=== PATIENT | male | born 1975 | race African-American/Black ===

== ENCOUNTER 2019-10-22 09:26 | Emergency (ER) | payer SELFPAY ==
--- NOTE | 2019-10-22 10:05 | RAD ---
XR Knee Rt 4 View STANDARD History: Knee injury Comparison: None. Findings: Large joint effusion. Nondisplaced posterior lateral tibial rim fracture seen on the obliqu e image. Fibular head and neck appears be intact. Fibular styloid process appears be intact. Impression: Large effusion with subtle fracture posterior lateral tibial rim is concerning for high-g rade internal derangement. MRI recommended.
[2019-10-22] MEDS ORDERED: Morphine 4 MG/ML VIAL ONE (10:43)
[2019-10-22 10:52] LABS: #Lymphocytes 1.6 thou/uL (1.20-3.40); #Monocytes 0.7 thou/uL (0.11-0.59); #Neutrophils 9.9 thou/uL (1.40-6.50); %Basophils 0.3 % (0.0-1.0); %Eosinophils 0.2 % (0.0-10.0); %Lymphocytes 12.7 % (21.0-51.0); %Monocytes 5.7 % (0.0-10.0); %Neutrophils 81.1 % (42.0-75.0); Hemoglobin 13.3 g/dL (14.0-18.0); Mean Corpuscular HGB CONC 32.3 g/dL (32.0-36.0); Mean Corpuscular Hemoglobin 28.4 pg (27.0-31.0); Mean Corpuscular Volume 87.8 fL (78.0-98.0); Mean Platelet Volume 7.6 fL (7.4-10.4); Platelet Count 271 thou/uL (130-400); RBC Distribution Width 12.7 % (11.5-14.5); Red Blood Cell (RBC) Count 4.68 mill/uL (4.70-6.10); White Blood Cell (WBC) Count 12.3 thou/uL (4.8-10.8)
[2019-10-22 11:04] LABS: Anion Gap 11 mmol/L (10-20); BUN (Urea Nitrogen) 16 mg/dL (8.9-20.6); Calc. Creatinine Clearance 0 mL/min (70-130); Carbon Dioxide 27 mmol/L (22-29); Chloride 105 mmol/L (98-107); Estimated GFR-MDRD 80; Glucose 102 mg/dL (70-105); Potassium 4.4 mmol/L (3.5-5.1); Sodium 139 mmol/L (136-145)
== END 2019-10-22 12:15 | disposition home or self-care (01) ==
LOC: ERS 09:26
DX: S82.201A Unspecified fracture of shaft of right tibia, initial encounter for closed fracture (principal); F32.9 Major depressive disorder, single episode, unspecified; Z87.891 Personal history of nicotine dependence; W01.0XXA Fall on same level from slipping, tripping and stumbling without subsequent striking against object, initial encounter; Y92.69 Other specified industrial and construction area as the place of occurrence of the external cause
CPT/HCPCS: 36415; 80048; 85025; 85652; 86140; 96372; J2270